=== PATIENT | female | born 1995 | race African-American/Black ===

== ENCOUNTER 2018-08-11 12:55 | Emergency (ER) | payer MEDICAID ==
[2018-08-11] MEDS ORDERED: Naloxone HCl 0.4 mg/ml Vial ONE (13:21)
[2018-08-11 13:43] LABS: Bilirubin Negative (Negative); Blood, Urine Negative (Negative); Clarity CLEAR (Clear); Glucose, Urine (Dipstick) Negative (Negative); Leukocyte Negative (Negative); Nitrite Negative (Negative); Protein, Urine (Dipstick) Trace mg/dL (Neg-Trace); Specific Gravity, Urine 1.022 (1.002-1.036)
[2018-08-11 13:54] LABS: Amphetamine Not Detected (NotDetected); Barbiturates Screen Not Detected (NotDetected); Benzodiazepine Screen Not Detected (NotDetected); Cocaine Metabolite Screen Not Detected (NotDetected); Medtox Control Line Valid? VALID (VALID); Medtox Reader # READER 1; Methadone Not Detected (NotDetected); Methamphetamine Not Detected (NotDetected); Opiate Screen Not Detected (NotDetected); Oxycodone Screen Not Detected (NotDetected); Phencyclidine (PCP) Not Detected (NotDetected); THC/Cannabinoid Screen Not Detected (NotDetected); Tricyclic Screen Not Detected (NotDetected)
[2018-08-11 14:06] LABS: #Basophils 0.1 thou/uL (0.0-0.2); #Eosinphils 0.1 thou/uL (0.0-0.7); #Monocytes 0.4 thou/uL (0.11-0.59); #Neutrophils 4.4 thou/uL (1.40-6.50); %Basophils 1.2 % (0.0-1.0); %Eosinophils 1.1 % (0.0-10.0); %Lymphocytes 28.2 % (21.0-51.0); %Monocytes 5.5 % (0.0-10.0); Hemoglobin 13.5 g/dL (12.0-16.0); Mean Corpuscular HGB CONC 32.5 g/dL (32.0-36.0); Mean Corpuscular Hemoglobin 29.4 pg (27.0-31.0); Mean Corpuscular Volume 90.6 fL (78.0-98.0); Mean Platelet Volume 9.4 fL (7.4-10.4); Platelet Count 208 thou/uL (130-400); RBC Distribution Width 11.4 % (11.5-14.5); Red Blood Cell (RBC) Count 4.58 mill/uL (4.20-5.40); White Blood Cell (WBC) Count 6.9 thou/uL (4.8-10.8)
[2018-08-11 14:10] LABS: BHCG - Serum Negative (NEGATIVE); Pregs Control Background? CLEAR/WHITE (CLR/WHITE); Pregs Control Bar Appear? YES (CONTROL BAR)
--- NOTE | 2018-08-11 14:21 | RAD ---
CHEST 1 VIEW: HISTORY: Altered mental status. COMPARISON: None. FINDINGS: Normal cardiac silhouette. The pulmonary vessels and hilum are normal. No consolidation or mass. N o pneumothorax or osseous abnormalities. IMPRESSION: No acute cardiopulmonary process. POS: PPP
[2018-08-11 14:23] LABS: ALT (SGPT) 9 U/L (8-55); AST (SGOT) 12 U/L (5-34); Acetaminophen Less than 6.0 mcg/mL (10.0-30.0); Albumin 4.4 g/dL (3.5-5.0); Alcohol Less than 10 mg/dL (Less than 10); Alkaline Phosphatase 75 U/L (40-150); Anion Gap 17 mmol/L (10-20); BUN (Urea Nitrogen) 11 mg/dL (7.0-18.7); Bilirubin, Total 0.7 mg/dL (0.2-1.2); CK (CPK) 80 U/L (29-168); Calc. Creatinine Clearance 0 mL/min (70-130); Calcium 9.4 mg/dL (7.8-10.44); Carbon Dioxide 19 mmol/L (22-29); Chloride 110 mmol/L (98-107); Estimated GFR-MDRD Greater than 90; Globulin 3.1 g/dL (2.4-3.5); Glucose 70 mg/dL (70-105); Potassium 3.7 mmol/L (3.5-5.1); Protein, Total 7.5 g/dL (6.0-8.3); Salicylate Less than 8.0 mg/dL (15.0-30.0); Sodium 142 mmol/L (136-145)
[2018-08-11 14:27] LABS: CKMB 0.6 ng/mL (0-6.6); Troponin I Less than 0.010 ng/mL (< 0.028)
[2018-08-11 14:47] LABS: Thyroid Stimulating Hormone 1.1426 uIU/mL (0.35-4.94)
--- NOTE | 2018-08-11 14:57 | CT ---
CT BRAIN: DATE: 08/11/18. PROVIDED CLINICAL HISTORY: Altered mental status. FINDINGS: No comparisons. The ventricular system appears nondilated. There is diffuse paucity of cerebral sul ci. T he insular regions are not well seen. The basilar cisterns appear preserved. There is no shift of the midline structures. There is no evidence for intracranial hemorrhage. No definite loss of g ray-white differentiation. The osseous structures and extracranial soft tissues appear unremarkable. IMPRESSION: Paucity of visualized cerebral sulci and poorly visualized bilateral sylvian fissures. Findings coul d be on the basis of diffuse cerebral edema. Some of this could also be attributable to the patient' s young age. Consider followup is indicated. POS: [facility]MON[facility]
[2018-08-11] MEDS ORDERED: Dexamethasone 4 mg/ml Vial ONE (15:28)
--- NOTE | 2018-08-17 13:38 | EKG ---
Test Reason : SYNCOPE Blood Pressure : / mmHG Vent. Rate : 074 BPM Atrial Rate : 074 BPM P-R Int : 154 ms QRS Dur : 082 ms QT Int : 392 ms P-R-T Axes : 029 005 015 degrees QTc Int : 435 ms Normal sinus rhythm Poor anterior R wave progression Abnormal ECG Confirmed by HERB MADRIGAL, SHENG ([id number]), dictionary editor NIKKI MARCOS ([id number]) on 08/17/2018 1:37:44 PM Referred By: Confirmed By:SHENG ESTEVEZ MD
== END 2018-08-11 16:01 | disposition home or self-care (01) ==
LOC: ERS 12:55
DX: R55 Syncope and collapse (principal)
CPT/HCPCS: 36415; 51701; 70450; 71045; 80053; 80306; 80307; 81003; 82553; 83605; 84146; 84443; 84484; 84703; 85025; 93005; 96374; 96375; A4353; J1100; J2310